=== PATIENT | male | born 1965 | race African-American/Black ===

== ENCOUNTER 2022-07-07 08:18 | Day surgery (SDC) | payer OTHER ==
[2022-07-01 16:42] VITALS: BMI 26.5
[2022-07-07] MEDS ORDERED: LIDOCAINE HCL/PF 2% SDV 5ML VIAL ONE (08:34)
[2022-07-07] MEDS ORDERED: PROPOFOL 160 ML ONE (08:34)
[2022-07-07 09:29] VITALS: BP 101/70; PULSE 63; RESP 20; TEMP 98.1
== END 2022-07-07 09:55 | disposition home or self-care (01) ==
LOC: FASU-ENDO 08:18
PROVIDERS: ATTEND Internal Medicine Gastroenterology
PROC: 0DJD8ZZ Inspection of Lower Intestinal Tract, Via Natural or Artificial Opening Endoscopic (ICD-10-PCS; principal; 2022-07-07 08:43)
DX: Z12.11 Encounter for screening for malignant neoplasm of colon (principal); Z86.010 Personal history of colon polyps